=== PATIENT | female | born 1985 | race Caucasian/White ===

== ENCOUNTER 2016-08-09 07:25 | Emergency (ER) | payer OTHER ==
[~2016-08-09] VITALS: Ht 165.1 cm; Wt 63.5 kg
[2016-08-09 07:26] VITALS: BP 121/76
[2016-08-09] MEDS ORDERED: NORCO 5-325 TA1 EACH PO (08:48)
== END 2016-08-09 09:19 | disposition home or self-care (01) ==
LOC: ER 07:25
DX: S82.301A Unspecified fracture of lower end of right tibia, initial encounter for closed fracture (principal); F17.210 Nicotine dependence, cigarettes, uncomplicated; F10.99 Alcohol use, unspecified with unspecified alcohol-induced disorder; W18.09XA Striking against other object with subsequent fall, initial encounter; Y93.9 Activity, unspecified; Y92.9 Unspecified place or not applicable; Y99.9 Unspecified external cause status